=== PATIENT | female | born 1965 | race Caucasian/White ===

== ENCOUNTER 2019-05-30 18:06 | Emergency (ER) | payer OTHER ==
--- NOTE | 2019-05-30 18:18 | PDOC ---
Rapid Medical Evaluation Time Seen by Provider: 05/30/19 18:16 Medical Evaluation: Allergies Allergy/AdvReac Type Severity Reaction Status Date / Time No Known Allergies Allergy Uncoded 04/22/12 12:02 05/30/19 18:17 I have performed a brief in-person evaluation of this patient. The patient presents with a chief complaint of: Lower abd pain w/ n/v/d w/ low grade fever since yesterday. No recent travel/abx use/sick contacts/unusual food. H/o IBS Pertinent physical exam findings:stable and well colin I have ordered the following:labs The patient will proceed to the ED for further evaluation. Discharge Disposition - Diagnosis Abdominal pain Qualifiers: Abdominal location: unspecified location Qualified Code(s): R10.9 - Unspecified abdominal pain - Referrals - Patient Instructions - Post Discharge Activity
[2019-05-30 18:20] VITALS: BP 123/84; PULSE 98; TEMP 98.4; BMI 22.8
[2019-05-30 20:21] LABS: BASO % 0.8 % (0-2.0); EOS % 0.8 % (0-4.5); HEMATOCRIT 44.2 % (32.4-45.2); HEMOGLOBIN 14.9 GM/dL (10.7-15.3); MCHC 33.7 g/dl (32.0-36.0); MEAN CELL VOLUME 86.1 fl (80-96); MEAN PLT VOLUME 9.1 fl (7.5-11.1); MONO % 6.9 % (3.8-10.2); NEUT % 70.5 % (42.8-82.8); PLATELET COUNT 227 K/MM3 (134-434); RBC 5.14 M/mm3 (3.60-5.2); RDW 13.2 % (11.6-15.6); WHITE BLOOD COUNT 13.3 K/mm3 (4.0-10.0)
[2019-05-30 20:54] LABS: ALBUMIN 3.7 g/dl (3.4-5.0); BILIRUBIN,TOTAL 1.1 mg/dL (0.2-1); BLOOD UREA NITROGEN 17.2 mg/dL (7-18); CALCIUM 8.8 mg/dL (8.5-10.1); CREATININE 0.6 mg/dL (0.55-1.3); POTASSIUM 3.4 mmol/L (3.5-5.1); TOT PROT 7.6 g/dl (6.4-8.2)
--- NOTE | 2019-05-30 21:25 | PDOC ---
History of Present Illness - General Chief Complaint: Pain, Acute Stated Complaint: ABD PAIN/NAUSEA Time Seen by Provider: 05/30/19 18:16 History Source: Patient, Spouse (Pt's present at bedside.), Old Records Exam Limitations: No Limitations - History of Present Illness Initial Comments: HPI: 54 y/o female presenting to [facility] ER complaining of two days of lower abdominal versus suprapubic pain. Started yesterday with mild constipation, which is a chronic multi-year complaint. Successfully had a BM this morning which quickly progressed to watery, nonbloody diarrhea. Pain is described as nonmigratory and similar to that of labor pains. Intensity lessens after BM. Endorses multiple episodes of nonbloody, nonbilious emesis, but tolerating small amounts of liquid PO. No h/o of similar symptoms. Expressed concern for diverticulitis because of the labor like pain. Pt has a remote h/o of IBS but is unable to recall the exact symptoms. 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 Started Miralax on Sunday for constipation as recommended. Last colonoscopy performed in 2011 without findings per pt. Denies sick contacts, recent travel, or recent antibiotic usage. Dermatology Procedural Physician: Dr. [facility] Hx: - GERD - remote h/o IBS - Postmenopausal. LMP 2 years ago. Vaginal dryness managed w/ estrogen cream - Chronic lower back pain - Uterine fibroids Review of Systems: In addition to that documented in the HPI above, the additional ROS was obtained : Constitutional: Endorses subjective fever and chills. Denies diaphoresis. Head: Denies vision changes ENMT: Denies sore throat CV: Denies chest pain Resp: Denies SOB GI: Per HPI : Denies painful urination, increased urinary frequency, hematuria, or vaginal discharge MSK: Denies recent trauma Skin: Denies new rashes Neuro: Denies new numbness or tingling or weakness Endocrine: Denies polyuria Heme: Denies bleeding or bruising Physical Examination: Constitutional: Well-developed, well-nourished adult female in no acute distress or obvious discomfort. Found semi-fowlers on hospital bed. Alert and oriented x4. Answered all questions appropriately and completely. Speech was non -labored, non-pressured. Head: Normocephalic. No obvious external signs of trauma. Cardiovascular / Chest: Regular rate and regular rhythm. No murmur, rubs, clicks , or gallops. Peripheral pulses: radial pulses full. Respiratory: Breathing unlabored. Equal chest rise and fall. Clear to auscultation bilaterally. No stridor, no wheezing, no rhonchi. Gastrointestinal: abdomen is tender in suprapubic region > RLQ and LLQ with graimace but no rebound or guarding. Globally, abdomen is soft and nondistended. No hepatosplenemegaly. No pulsatile masses. No overlying skin lesions or obvious signs of trauma. Neuro: Alert and oriented. Moving all four extremities spontaneously. Skin: Warm, dry, and intact. No bruising, rashes, or other lesions. : No R or L CVA tenderness. Psych: Affect: appropriate. Mood: normal. Past History - Past Medical History Allergies/Adverse Reactions: Allergies Allergy/AdvReac Type Severity Reaction Status Date / Time No Known Allergies Allergy Uncoded 05/30/19 18:17 Home Medications: Ambulatory Orders Esomeprazole Mag Trihydrate [Nexium] 20 mg PO DAILY 04/22/12 l-Norgest/E.estradiol-E.estrad [Camrese Lo Tablet] 1 each PO DAILY 10/07/14 Duloxetine [Cymbalta -] 30 mg PO DAILY #30 08/18/15 Probiotic Advantage 12/22/15 Ciprofloxacin [Cipro (Restricted To Id)] 500 mg PO BID 10 Days #20 tablet Naproxen [Naprosyn -] 500 mg PO BID PRN 7 Days #14 tablet 05/30/19 metroNIDAZOLE [Flagyl -] 500 mg PO TID 10 Days #30 tablet 05/30/19 Anemia: No Asthma: No Cancer: No Cardiac Disorders: No CVA: No COPD: No CHF: No Dementia: No Diabetes: No GI Disorders: Yes (HEMORRHOIDS) Disorders: No HTN: No Hypercholesterolemia: No Liver Disease: No Seizures: No Thyroid Disease: No - Surgical History Abdominal Surgery: No Appendectomy: No Cardiac Surgery: No Cholecystectomy: No Lung Surgery: No Neurologic Surgery: No Orthopedic Surgery: No - Immunization History Immunization Up to Date: Yes - Suicide/Smoking/Psychosocial Hx Smoking History: Never smoked Have you smoked in the past 12 months: No Hx Alcohol Use: No Drug/Substance Use Hx: No Substance Use Type: None Hx Substance Use Treatment: No *Physical Exam - Vital Signs Last Vital Signs Temp Pulse Resp BP Pulse Ox 98.4 F 98 H 18 123/84 95 05/30/19 18:17 05/30/19 18:17 05/30/19 18:17 05/30/19 18:17 05/30/19 18:17 ED Treatment Course - LABORATORY CBC & Chemistry Diagram: 05/30/19 20:10 05/30/19 20:10 - ADDITIONAL ORDERS Additional order review: Laboratory Results 05/30/19 05/30/19 05/30/19 20:10 20:10 20:10 Sodium 141 Potassium 3.4 L Chloride 105 Carbon Dioxide 25 Anion Gap 10 BUN 17.2 Creatinine 0.6 Est GFR (CKD-EPI)AfAm 120.61 Est GFR (CKD-EPI)NonAf 104.06 Random Glucose 127 H Calcium 8.8 Total Bilirubin 1.1 H AST 13 L ALT 17 Alkaline Phosphatase 94 Total Protein 7.6 Albumin 3.7 Lipase 54 L Serum , Qual Negative 05/30/19 20:10 RBC 5.14 MCV 86.1 MCHC 33.7 RDW 13.2 MPV 9.1 Neutrophils % 70.5 Lymphocytes % 21.0 Monocytes % 6.9 Eosinophils % 0.8 Basophils % 0.8 - RADIOLOGY Radiology Studies Ordered: Category Date Time Status ABDOMEN & PELVIS CT WITH CONTR [CT] Stat CT Scan 05/30/19 20:52 Ordered *DC/Admit/Observation/Transfer Diagnosis at time of Disposition: Colitis, Nausea vomiting and diarrhea Abdominal pain Qualifiers: Abdominal location: unspecified location Qualified Code(s): R10.9 - Unspecified abdominal pain - Discharge Dispostion Disposition: HOME Condition at time of disposition: Improved Decision to Admit order: No - Prescriptions Prescriptions: Ciprofloxacin [Cipro (Restricted To Id)] 500 mg PO BID 10 Days #20 tablet metroNIDAZOLE [Flagyl -] 500 mg PO TID 10 Days #30 tablet Naproxen [Naprosyn -] 500 mg PO BID PRN 7 Days #14 tablet PRN Reason: Pain - Referrals Referrals: Piotr Jeffery MD [Primary Care Provider] - - Patient Instructions Printed Discharge Instructions: DI for Colitis Additional Instructions: You were seen today for lower abdominal pain with nausea and vomiting. Your blood work was normal. Your CT scan showed you likely have a condition called colitis, which is sometimes caused by a bacterial infection. Your CT scan also showed a small growth on one of your kidneys, your liver, and your uterus. These are not likely to be related to your symptoms today. You will need to have these evaluated further by your primary care doctor. I have sent three prescriptions to your pharmacy. Two are for antibiotics and one is for a pain medication called Naproxen. Take as directed on the package insert. Do not exceed the recommended dosage. Do not take with other NSAID medications such as Ibuprofen, Advil, or Motrin. Follow up with your primary care doctor within the next 3-4 days. You will need to call to make an appointment. The number is included in this packet. A copy of todays results are attached to this packet. Take it to the appointment so your doctor can review them. Go to the nearest emergency department if your condition worsens or you feel like you need additional emergency evaluation. Print Language: NIGERIAN - Post Discharge Activity
--- NOTE | 2019-05-30 21:41 | PDOC ---
Documentation entered by Kaden Chaudhry SCRIBE, acting as scribe for Armando Manning MD. Armando Manning MD: This documentation has been prepared by the nahomieIsidoro Elijah, SCRIBE, under my direction and personally reviewed by me in its entirety. I confirm that the documentation accurately reflects all work, treatment, procedures, and medical decision making performed by me. Attending Attestation - Resident Resident Name: Gautam Mccall - ED Attending Attestation I have performed the following: I have examined & evaluated the patient, The case was reviewed & discussed with the resident, I agree w/resident's findings & plan, Exceptions are as noted - HPI HPI: 05/30/19 21:41 Patient is a 54 year old female with significant past medical history of GERD who presents to the ED with Lower Abdominal Cramping pain that began yesterday evening. Patient was eating dinner and after having x3 BM she reports beginning to feel constipated. Patient had NBNB vomiting and constipation while trying to sleep. In the morning the patient vomited again and had diarrhea. Patient notes that she has had similar episodes in the past but in this instance the pain did not subside after using the restroom so it prompted her visit to the ED. Denies Vaginal symptoms and discharge. Allergies: NKA PCP: Dr. Jeffery - Physicial Exam PE: 05/30/19 21:42 GENERAL: Awake, alert, and fully oriented, in no acute distress HEAD: No signs of trauma ENT: Hearing grossly normal. NECK: Normal ROM. Supple. LUNGS: Breath sounds equal, clear to auscultation bilaterally. No wheezes, and no crackles HEART: Regular rate and rhythm, normal S1 and S2, no murmurs, rubs or gallops ABDOMEN: +Suprapubic and LLQ tenderness to palpation. No guarding, no rebound. EXTREMITIES: Normal range of motion, no edema. No clubbing or cyanosis. No cords, erythema, or tenderness NEUROLOGICAL: Cranial nerves II through XII grossly intact. Normal speech. SKIN: Warm, Dry. No rashes or lesions noted. - Medical Decision Making 05/30/19 21:11 A portion of this note was documented by scribe services under my direction. I have reviewed the details of the note, within reason, and agree with the documentation with the following case summary and management plan written by me. Patient treated in the ED. Nursing notes are reviewed and incorporated into the medical decision-making. Vital signs reviewed. Peripheral IV access obtained by the nurse, laboratory studies are drawn and sent, reviewed and interpreted by myself. Vital Signs Temp Pulse Resp BP Pulse Ox 98.4 F 98 H 18 123/84 95 05/30/19 18:17 05/30/19 18:17 05/30/19 18:17 05/30/19 18:17 05/30/19 18:17 54-year-old female patient with history of GERD presents with suprapubic and left lower quadrant pain since yesterday. Patient noted a crampy like gradual worsening pain with associated nausea vomiting and tactile fevers. Denies dysuria or vaginal bleeding. Patient last had a colonoscopy 2011 reportedly negative. Patient's concern for potential diverticulitis and came to the ER. Given the tenderness is suprapubic and left lower quadrant, we will need to investigate for potential diverticulitis, versus colitis for the patient's diarrhea, cystitis. We'll obtain labs him a urinalysis, urine culture and a CAT scan abdomen pelvis and reassess. 05/30/19 22:39 CBC, BMP 05/30/19 20:10 05/30/19 20:10 CMP Sodium 141 mmol/L (136-145) 05/30/19 20:10 Potassium 3.4 mmol/L (3.5-5.1) L 05/30/19 20:10 Chloride 105 mmol/L (98-107) 05/30/19 20:10 Carbon Dioxide 25 mmol/L (21-32) 05/30/19 20:10 Anion Gap 10 MMOL/L (8-16) 05/30/19 20:10 BUN 17.2 mg/dL (7-18) 05/30/19 20:10 Creatinine 0.6 mg/dL (0.55-1.3) 05/30/19 20:10 Est GFR (CKD-EPI)AfAm 120.61 05/30/19 20:10 Est GFR (CKD-EPI)NonAf 104.06 05/30/19 20:10 Random Glucose 127 mg/dL (74-106) H 05/30/19 20:10 Calcium 8.8 mg/dL (8.5-10.1) 05/30/19 20:10 Total Bilirubin 1.1 mg/dL (0.2-1) H 05/30/19 20:10 AST 13 U/L (15-37) L 05/30/19 20:10 ALT 17 U/L (13-61) 05/30/19 20:10 Alkaline Phosphatase 94 U/L (45-117) 05/30/19 20:10 Total Protein 7.6 g/dl (6.4-8.2) 05/30/19 20:10 Albumin 3.7 g/dl (3.4-5.0) 05/30/19 20:10 Lipase 54 U/L (73-393) L 05/30/19 20:10 Serum , Qual Negative 05/30/19 20:10 Blood work reviewed. CAT scan demonstrates acute colitis. Also shows hemangioma nodules which I explained to the patient. The patient will need further outpatient workup including ultrasound and/or MRI of the abdomen. At this time, we'll treat as infectious colitis with ciprofloxacin and Flagyl. However, I did advise the patient that this could potentially be irritable bowel disease or irritable bowel syndrome. The patient states she has an upcoming colonoscopy with her doctor and she will bring the results for the CAT scan to her doctor. She will pursue outpatient imaging regards to the hypodense lesion in the liver. Patient verbalizes understanding agrees with plan. She reports feeling better like to go home.
[2019-05-30 23:41] LABS: URINE APPEARANCE CLEAR; URINE BILIRUBIN NEGATIVE (NEGATIVE); URINE COLOR YELLOW; URINE GLUCOSE (UA) NEGATIVE (NEGATIVE); URINE KETONE NEGATIVE (NEGATIVE)
[2019-05-30 23:42] LABS: EPI CELLS 2 /HPF (0-5/HPF); HYALINE CASTS 4 /lpf (0-8); URINE LEUK ESTERASE N (NEGATIVE); URINE NITRITE NEGATIVE (NEGATIVE); URINE PROTEIN NEGATIVE (NEGATIVE); URINE RBC 9 /hpf (0-4); URINE UROBILINOGEN 0.2 mg/dL (0.2-1.0); URINE WBC 4 /hpf (0-5)
[2019-05-30 23:43] LABS: URINE BACTERIA 94 /hpf (NEGATIVE)
== END 2019-05-30 22:41 | disposition home or self-care (01) ==
LOC: JER 18:06
DX: K52.9 Noninfective gastroenteritis and colitis, unspecified (principal); K21.9 Gastro-esophageal reflux disease without esophagitis; M54.5 Low back pain; G89.29 Other chronic pain; Z86.2 Personal history of diseases of the blood and blood-forming organs and certain disorders involving the immune mechanism
CPT/HCPCS: 36415; 74177-TC; 80053; 81003; 83690; 84703; 85025; 87086; 99283-25

== ENCOUNTER 2023-07-15 10:33 | Emergency (ER) | payer OTHER, BC ==
[2023-07-15 10:37] VITALS: BP 112/80; PULSE 94; RESP 18; TEMP 99.2; BMI 23.8
[2023-07-15] MEDS ORDERED: LACTATED RINGERS SOLUTION 1000 ML INFUS.BAG IV ONE (12:06)
[2023-07-15] MEDS ORDERED: DICYCLOMINE HCL 20 MG/2 ML AMPUL IM ONE (12:26)
[2023-07-15 12:38] LABS: BASO % 0.7 % (0-2.0); EOS % 0.8 % (0-4.5); HEMATOCRIT 41.1 % (32.4-45.2); HEMOGLOBIN 14.1 GM/dL (10.7-15.3); LYMPH % 18.1 % (8-40); MCH 29.1 pg (25.7-33.7); MCHC 34.3 g/dl (32.0-36.0); MEAN PLT VOLUME 8.2 fl (7.5-11.1); MONO % 6.4 % (3.8-10.2); PLATELET COUNT 204 10^3/uL (134-434); RBC 4.84 M/mm3 (3.60-5.2); RDW 13.5 % (11.6-15.6); WHITE BLOOD COUNT 12.1 K/mm3 (4.0-10.0)
[2023-07-15 12:50] LABS: INR 1.01 (0.83-1.09); PROTHROMBIN TIME (PATIENT) 11.7 SEC (9.7-13.0)
[2023-07-15 12:52] LABS: ACTIVATED PTT 27.1 SECONDS (25.2-36.5)
[2023-07-15 13:05] LABS: POTASSIUM 4.4 mmol/L (3.5-5.1)
[2023-07-15 13:07] LABS: ALBUMIN 3.8 g/dl (3.4-5.0); CALCIUM 9.3 mg/dL (8.5-10.1)
[2023-07-15 13:08] LABS: BLOOD UREA NITROGEN 14.1 mg/dL (7-18)
[2023-07-15 13:10] LABS: CREATININE 0.6 mg/dL (0.55-1.3)
[2023-07-15 13:12] LABS: BILIRUBIN,TOTAL 0.8 mg/dL (0.2-1); TOT PROT 7.7 g/dl (6.4-8.2)
[2023-07-15 13:44] LABS: EPI CELLS 2 /uL (0-25.1); HYALINE CASTS 0 /uL (0-3.1); PH,URINE 5.5 (5.0-8.0); URINE APPEARANCE CLEAR; URINE BACTERIA 19 /uL (0-1359); URINE BILIRUBIN NEGATIVE (NEGATIVE); URINE COLOR YELLOW; URINE GLUCOSE (UA) NEGATIVE (NEGATIVE); URINE KETONE TRACE (NEGATIVE); URINE LEUK ESTERASE TRACE (NEGATIVE); URINE NITRITE NEGATIVE (NEGATIVE); URINE PROTEIN NEGATIVE (NEGATIVE); URINE RBC 72 /uL (0-23.9); URINE WBC 8 /uL (0-25.8)
== END 2023-07-15 17:30 | disposition home or self-care (01) ==
LOC: JER 10:33
PROC: 3E023GC Introduction of Other Therapeutic Substance into Muscle, Percutaneous Approach (ICD-10-PCS; principal; 2023-07-15)
DX: R10.32 Left lower quadrant pain (principal); K92.1 Melena; R19.7 Diarrhea, unspecified; K62.9 Disease of anus and rectum, unspecified; R10.13 Epigastric pain; K52.9 Noninfective gastroenteritis and colitis, unspecified; Z20.822 Contact with and (suspected) exposure to COVID-19
CPT/HCPCS: 0241U-QW; 36415; 74177-TC; 80053; 81003; 85025; 85610; 85730; 86850; 86900; 86901; 87086; 87186; 99285-25